=== PATIENT | male | born 1990 | race Caucasian/White ===

== ENCOUNTER 2018-03-05 11:33 | Emergency (ER) | payer OTHER ==
[2018-03-05] MEDS ORDERED: ONDANSETRON 4 MG/2 ML VIAL IVP ONE ×2 (11:50→14:10)
[2018-03-05] MEDS ORDERED: fentaNYL CITR 100 MCG/2 ML AMP IVP ONE (11:50)
[2018-03-05] MEDS ORDERED: KETOROLAC 15 MG/ML VIAL IVP ONE (11:50)
--- NOTE | 2018-03-05 11:57 | ER Report ---
History and Physical Time Seen By MD: 11:56 Hx. of Stated Complaint: LEFT SHOULDER INJURY WHILE PLAYING FOOTBALL. HPI/ROS CHIEF COMPLAINT: Left shoulder injury HISTORY OF PRESENT ILLNESS: Patient was playing tackle football this morning, fell on an adducted left shoulder having pain to the upper humeral area and shoulder area. Allergies: Coded Allergies: No Known Drug Allergies (Unverified , 03/05/18) Home Meds Active Scripts Ondansetron Hcl (ZOFRAN) 4 Mg Tablet, 4 MG PO Q8H for Nausea, #15 TAB 0 Refills Prov:RUFUS HERNANDEZ MD 03/05/18 Oxycodone Hcl/Acetaminophen (PERCOCET 5-325 MG TABLET) 1 Each Tablet, 1 EACH PO Q6H for PAIN, #12 TAB 0 Refills Prov:RUFUS HERNANDEZ MD 03/05/18 Past Medical/Surgical History Noncontributory towards the chief complaint Constitutional Vital Sign - Last 24 Hours 03/05/18 03/05/18 03/05/18 03/05/18 11:39 12:20 12:30 13:15 Temp 98.2 Pulse 107 75 Resp 18 18 18 B/P (MAP) 131/85 122/76 (91) 120/84 (96) Pulse Ox 93 93 100 O2 Delivery Room Air 03/05/18 03/05/18 03/05/18 03/05/18 13:20 13:25 13:30 13:35 Pulse 91 91 92 93 Resp 18 15 15 16 B/P (MAP) 125/77 (93) 133/92 (106) 114/73 (87) 124/83 (97) Pulse Ox 100 100 100 99 Physical Exam General appearance: Alert no distress. Respiratory: Chest is non tender, lungs are clear to auscultation. Cardiac: Regular rate and rhythm Examination of the left upper extremity reveals the patient's holding his arm fixed in internal rotation and adduction. Examination of the Left hand reveals no acute deformity. The patient is able to give a thumbs up sign, is able to make an okay sign, and is able to AB duct the fingers. Sensation is intact over the dorsal 1st web space, the volar aspect of the 2nd finger, and the volar aspect of the 5th finger. Capillary refill is brisk. Patient resists abduction and external rotation Medical Decision Making EKG/Imaging Imaging FACILITY: [facility] PATIENT NAME: Robert Osuna : 1990 MR: [id number] V: [id number] EXAM DATE: [id number] ORDERING PHYSICIAN: RUFUS HERNANDEZ TECHNOLOGIST: Location: [facility] [place] Patient: Robert Osuna : 1990 Visit/Account:[id number] Date of Sevice: 03/05/2018 Technique: SHOULDER MIN 2 VIEWS LEFT HISTORY: FOOTBALL INJURY, PAIN Comparison studies: None FINDINGS: There is no acute fracture. The alignment of the left shoulder is maintained. Soft tissues are unremarkable. IMPRESSION: 1. No acute osseous process. Report Dictated By: Rm Powell DO at 03/05/2018 12:17 PM Report E-Signed By: Rm Powell DO at 03/05/2018 12:18 PM WSN:[email or web address] FACILITY: [facility] PATIENT NAME: Robert Osuna : 1990 MR: [id number] V: [id number] EXAM DATE: [id number] ORDERING PHYSICIAN: RUFUS HERNANDEZ TECHNOLOGIST: Location: [facility] [place] Patient: Robert Osuna : 1990 Visit/Account:[id number] Date of Sevice: 03/05/2018 Technique: SHOULDER MIN 2 VIEWS LEFT HISTORY: post reduction Comparison studies: Right shoulder radiographs 03/05/2018 FINDINGS: Successful reduction of the posterior shoulder dislocation is noted. The alignment of the right shoulder is maintained. No acute fracture is identified. Soft tissues are unremarkable. IMPRESSION: 1. Successful reduction of a posterior shoulder dislocation Report Dictated By: Rm Powell DO at 03/05/2018 1:51 PM Report E-Signed By: Rm Powell DO at 03/05/2018 1:52 PM [facility]/Re-eval[facility] ED Course 03/05/2018 12:50:27 pm luminary read by radiology is normal appearing shoulder. I however am concerned about the possibility of a posterior dislocation given the "lightbulb sign" on AP view. The view is somewhat oblique and is difficult to interpret but there is some suggestion of a posterior disc placement. Radiology will repeat some x-rays. I am clinically suspicious of a posterior dislocation so we'll likely try attempt at closed reduction under pr ocedural sedation. Procedure Procedure: Procedural sedation. A pre-sedation evaluation was completed on the patient at 1315. Patient is an appropriate candidate for procedural sedation. The risks of the sedation were discussed with the patient. A time out was completed. The patient was sedated with a total of 55 mg of propofol and 95 mg of ketamine. The patient was monitored with continuous pulse oximetry and groundwater monitoring technician. There were no complications and no significant hypoxemia. I remained at the bedside for the sedation. The total time I spent in the procedural sedation was 20 minutes. Procedure: Dislocation reduction: The left shoulder was reduced in the usual fashion without complications. Post reduction the patient's neurovascular exam is normal. Post reduction x-ray demonstrates reduction of the joint to the anatomic position. The procedure was performed by myself. Decision to Disposition Date: Mar 05, 2018 Decision to Disposition Time: 14:19 Depart Departure Latest Vital Signs Vital Signs Date Time Temp Pulse Resp B/P (MAP) Pulse Ox O2 Delivery O2 Flow Rate FiO2 03/05/18 13:35 93 16 124/83 (97) 99 03/05/18 11:39 98.2 Room Air Impression: Primary Impression: Posterior dislocation of left shoulder joint Condition: Improved Disposition: HOME OR SELF-CARE New Scripts Ondansetron Hcl (ZOFRAN) 4 Mg Tablet 4 MG PO Q8H for Nausea, #15 TAB 0 Refills Prov: RUFUS HERNANDEZ MD 03/05/18 Oxycodone Hcl/Acetaminophen (PERCOCET 5-325 MG TABLET) 1 Each Tablet 1 EACH PO Q6H for PAIN, #12 TAB 0 Refills Prov: RUFUS HERNANDEZ MD 03/05/18 Patient Instructions: How to Use a Sling (GEN), Shoulder Dislocation (GEN), Shoulder Dislocation Exercises (GEN) Additional Instructions: Make a follow-up appointment next week with [facility], call [phone] this week to schedule a follow-up appointment for your shoulder dislocation. Address: [address] [place] [address] [place] [address] Problem Qualifiers Primary Impression: Posterior dislocation of left shoulder joint Encounter type: initial encounter Qualified Codes: S43.022A - Posterior subluxation of left humerus, initial encounter RUFUS HERNANDEZ MD Mar 05, 2018 11:57
--- NOTE | 2018-03-05 12:21 | RADIOLOGY IMAGING REPORT ---
FACILITY: [facility] - [place] PATIENT NAME: Robert Osuna : 1990 MR: [id number] V: [id number] EXAM DATE: ORDERING PHYSICIAN: RUFUS HERNANDEZ TECHNOLOGIST: Location: [facility] Patient: Robert Osuna : 1990 Visit/Account:[id number] Date of Sevice: 03/05/2018 ADDENDUM #2 Repeat radiographs again demonstrate a widened glenohumeral joint with the shoulder fixed in internal rotation consistent with a posterior dislocation. Recommend post reduction radiographs to exclude a n underlying fracture. Report Dictated By: Rm Powell DO at 03/05/2018 1:09 PM Report E-Signed By: Rm Powell DO at 03/05/2018 1:13 PM ADDENDUM #1 There is suboptimal AP and scapular Y views of the left shoulder. If the patient is fixed in interna l rotation then suspicion for a posterior dislocation is high. Additional scapular Y view and repeat internal/external views would be helpful. Results were called to Dr. RUFUS HERNANDEZ at 03/05/2018 12:47 PM. Report Dictated By: Rm Powell DO at 03/05/2018 12:38 PM Report E-Signed By: Rm Powell DO at 03/05/2018 12:47 PM ORIGINAL REPORT Technique: SHOULDER MIN 2 VIEWS LEFT HISTORY: FOOTBALL INJURY, PAIN Comparison studies: None FINDINGS: There is no acute fracture. The alignment of the left shoulder is maintained. Soft tissue s are unremarkable. IMPRESSION: 1. No acute osseous process. Report Dictated By: Rm Powell DO at 03/05/2018 12:17 PM Report E-Signed By: Rm Powell DO at 03/05/2018 12:18 PM WSN:[email or web address]
[2018-03-05] MEDS ORDERED: PROPOFOL EMUL 10MG/ML 20 ML VL IV ONE (12:30)
[2018-03-05] MEDS ORDERED: KETAMINE HCL 500 MG/5 ML VIAL IVP ONE (12:30)
--- NOTE | 2018-03-05 13:57 | RADIOLOGY IMAGING REPORT ---
FACILITY: [facility] [place] PATIENT NAME: Robert Osuna : 1990 MR: [id number] V: [id number] EXAM DATE: ORDERING PHYSICIAN: RFUUS HERNANDEZ TECHNOLOGIST: Location: [facility] Patient: Robert Osuna : 1990 Visit/Account:[id number] Date of Sevice: 03/05/2018 Technique: SHOULDER MIN 2 VIEWS LEFT HISTORY: post reduction Comparison studies: Right shoulder radiographs 03/05/2018 FINDINGS: Successful reduction of the posterior shoulder dislocation is noted. The alignment of the right shoulder is maintained. No acute fracture is identified. Soft tissues are unremarkable. IMPRESSION: 1. Successful reduction of a posterior shoulder dislocation Report Dictated By: Rm Powell DO at 03/05/2018 1:51 PM Report E-Signed By: Rm Powell DO at 03/05/2018 1:52 PM WSN:[email or web address]
[2018-03-05] MEDS ORDERED: OXYC-865 PO (14:16)
[2018-03-05] MEDS ORDERED: ONDA4TAB97 PO (14:16)
[2018-03-05 14:28] VITALS: BP 116/80
== END 2018-03-05 14:45 | disposition home or self-care (01) ==
LOC: ER 11:48
DX: S43.022A Posterior subluxation of left humerus, initial encounter (principal)
CPT/HCPCS: 23650; 73030; 96374; 96375; 96376; 99152; 99153; 99285; A4565; J1885; J2405; J2704; J3010